=== PATIENT | male | born 1980 | race Caucasian/White ===

== ENCOUNTER 2019-01-14 10:08 | Outpatient (RCR) | payer OTHER | END 2019-03-11 | disposition home or self-care (01) | LOC: WSC | DX: M70.89 Other soft tissue disorders related to use, overuse and pressure multiple sites (principal); X50.3XXA Overexertion from repetitive movements, initial encounter; Y93.89 Activity, other specified; Y92.59 Other trade areas as the place of occurrence of the external cause; Y99.0 Civilian activity done for income or pay; K21.9 Gastro-esophageal reflux disease without esophagitis; Z79.899 Other long term (current) drug therapy ==